=== PATIENT | female | born 1960 | race Caucasian/White ===

== ENCOUNTER 2017-02-04 13:33 | Emergency (ER) | payer MEDICARE, OTHER ==
--- NOTE | ~2017-02-04 | MR18 ---
[facility] A Service of [facility] RADIOLOGY TEXT RESULTS PATIENT: LUZ MARIA GUAN LOCATION: [facility] : [birth year] UNIT #: [id number] AGE: [address]: Yamila Montemayor MD SEX: F ORDER DR: [id number] [facility] [place] [address] [place], [place] [address] [id number] E MR#: [id number] Acc #: [id number] NAME: LUZ MARIA GUAN. : 1960 SEX: F STUDY DATE/TIME: 02/04/2017 22:30 UNIT: [facility] ROOM: STUDY DESCRIPTION: MR Brain Wo Contrast Attending Physician: Yamila Montemayor M.D. Ordering Physician: Jerel Goodman D.O. Primary Care Physician: Xavier Bailey M.D. MRI CENTER REPORT This report is preliminary unless electronic signature is present. EXAM MRI of the brain without contrast INDICATION Dizziness, loss of balance, slurred speech and ataxia starting 02/03/2017. The technologist noted that the patient was claustrophobic and could not hold still for the carotid artery study. TECHNIQUE Sagittal T1-weighted images and axial T1, T2, FLAIR, and diffusion images were obtained. FINDINGS The pituitary gland and foramen magnum region are normal in appearance. There is no abnormal diffusion. The ventricles and subarachnoid spaces are normal. There is no white matter abnormality identified. There are no extra-axial fluid collections. IMPRESSION Normal study. No evidence of recent ischemic change. Dictated by... Rodri Hernandes M.D. THIS IS AN ELECTRONICALLY VERIFIED REPORT Rodri Hernandes M.D. at 02/05/2017 1:21 PM JUAN/najma TD: 02/05/2017 09:43 JOB #: [id number] [facility] A Service of [facility] RADIOLOGY TEXT RESULTS PATIENT: LUZ MARIA GUAN LOCATION: [facility] : [birth year] UNIT #: [id number] AGE: [address]: Yamila Montemayor MD SEX: F ORDER DR: MRI CENTER REPORT Page 1 of 1 COPY
--- NOTE | ~2017-02-04 | CR72 ---
[facility] A Service of [facility] RADIOLOGY TEXT RESULTS PATIENT: LUZ MARIA GUAN LOCATION: [facility] : [birth year] UNIT #: [id number] AGE: [address]: Yamila Montemayor MD SEX: F ORDER DR: [id number] [facility] [address] [place], [place] [address] [id number] E MR#: [id number] Acc #: [id number] NAME: LUZ MARIA GUAN : 1960 SEX: F STUDY DATE/TIME: 02/04/2017 14:51 UNIT: [facility] ROOM: STUDY DESCRIPTION: CR Chest Single View Portable Attending Physician: Jerel Goodman D.O. Ordering Physician: Jerel Goodman D.O. Primary Care Physician: Xavier Bailey M.D. MEDICAL IMAGING REPORT This report is preliminary unless electronic signature is present EXAM Portable chest 02/04/2017 INDICATIONS Dizziness, encephalopathy, medication overdose, shortness of breath today. COMPARISON 03/11/2014 FINDINGS Decreased inspiratory volume with atelectasis in the lung bases. Heart size stable accounting for differences in technique. Visualized osseous structures are unremarkable. IMPRESSION No acute findings in the chest. Dictated by... Leonard Hairston M.D. THIS IS AN ELECTRONICALLY VERIFIED REPORT Leonard Hairston M.D. at 02/05/2017 7:38 AM SAYDA/demetrio TD: 02/04/2017 18:07 JOB #: [id number] MEDICAL IMAGING REPORT Page 1 of 1 COPY
--- NOTE | ~2017-02-04 | MR134 ---
[facility] A Service of [facility] & [facility] RADIOLOGY TEXT RESULTS PATIENT: LUZ MARIA GUAN LOCATION: [facility] : [birth year] UNIT #: [id number] AGE: [address]: Yamila Montemayor MD SEX: F ORDER DR: [id number] [facility] [address] [place], [place] [address] [id number] E MR#: [id number] Acc #: [id number] NAME: LUZ MARIA GUAN. : 1960 SEX: F STUDY DATE/TIME: 02/04/2017 22:30 UNIT: [facility] ROOM: STUDY DESCRIPTION: MR MRA Neck Wo Contrast Attending Physician: Yamila Montemayor M.D. Ordering Physician: Jerel Goodman D.O. Primary Care Physician: Xavier Bailey M.D. MRI CENTER REPORT This report is preliminary unless electronic signature is present. EXAM MRA of the neck HISTORY Dizziness, off-balance, slurred speech starting 02/03. FINDINGS The patient was claustrophobic and the study is non-diagnostic. The patient could not hold still and could not tolerate any additional imaging. The vertebral arteries are both patent. There is too much motion to evaluate for stenoses in the carotid systems. IMPRESSION The study is too degraded by motion to be of any significant diagnostic utility. Both vertebral arteries are patent but otherwise the study is nondiagnostic. Dictated by... Rodri Hernandes M.D. THIS IS AN ELECTRONICALLY VERIFIED REPORT Rodri Hernandes M.D. at 02/05/2017 1:21 PM Renetta TD: 02/05/2017 09:44 JOB #: [id number] MRI CENTER REPORT Page 1 of 1 COPY
--- NOTE | ~2017-02-04 | CR98 ---
[facility] A Service of [facility] & [facility] RADIOLOGY TEXT RESULTS PATIENT: LUZ MARIA GUAN LOCATION: [facility] : [birth year] UNIT #: [id number] AGE: [address]: Yamila Montemayor MD SEX: F ORDER DR: [id number] [facility] [address] [place], [place] [address] [id number] E MR#: [id number] Acc #: [id number] NAME: LUZ MARIA GUAN. : 1960 SEX: F STUDY DATE/TIME: 02/04/2017 17:35 UNIT: [facility] ROOM: STUDY DESCRIPTION: CR Eye FB Santino Attending Physician: Yamila Montemayor M.D. Ordering Physician: Jerel Goodman D.O. Primary Care Physician: Xavier Bailey M.D. MEDICAL IMAGING REPORT This report is preliminary unless electronic signature is present EXAM Foreign body orbital series, 02/04/2017 INDICATION MRI clearance. The patient reports a foreign body in her eyes years ago. TECHNIQUE 2 views of the orbits, no comparisons. FINDINGS No retained metallic appearing foreign body identified. Artifact from dental hardware. IMPRESSION No metallic retained opaque foreign body identified. Dictated by... Oskar Thomas M.D. THIS IS AN ELECTRONICALLY VERIFIED REPORT Oskar Thomas M.D. at 02/05/2017 2:30 PM Arik TD: 02/05/2017 03:25 JOB #: [id number] MEDICAL IMAGING REPORT Page 1 of 1 COPY
--- NOTE | ~2017-02-04 | EKG ---
PATIENT: CLEVELAND GUANY UNIT #: [id number] Ventricular Rate: 94 BPM Atrial Rate: 94 BPM P-R Interval: 132 ms QRS Duration: 66 ms Q-T Interval: 380 ms QTC Calculation(Bezet): 475 ms P Harrison: 60 degrees Calculated R Harrison: 38 degrees Calculated T Harrison: 49 degrees Diagnosis Line: Normal sinus rhythm Diagnosis Line: Normal ECG Diagnosis Line: No previous ECGs available Diagnosis Line: Confirmed by SUSU SEYMOUR MD ([id number]) on Diagnosis Line: 02/05/2017 9:09:04 PM INTERPRETING MD: CARRIE
--- NOTE | ~2017-02-04 | MR122 ---
[facility] A Service of [facility] RADIOLOGY TEXT RESULTS PATIENT: LUZ MARIA GUAN LOCATION: [facility] : [birth year] UNIT #: [id number] AGE: [address]: Yamila Montemayor MD SEX: F ORDER DR: [id number] [facility] [address] [place], [place] [address] [id number] E MR#: [id number] Acc #: [id number] NAME: LUZ MARIA GUAN. : 1960 SEX: F STUDY DATE/TIME: 02/04/2017 22:30 UNIT: [facility] ROOM: STUDY DESCRIPTION: MR MRA Head Wo Contrast Attending Physician: Yamila Montemayor M.D. Ordering Physician: Jerel Goodman D.O. Primary Care Physician: Xavier Bailey M.D. MRI CENTER REPORT This report is preliminary unless electronic signature is present. EXAM MRA of the brain INDICATION Dizziness, off balance, slurred speech starting 02/03/2017. TECHNIQUE 3D [id number] acquisition was used to generate angiographic images of the base of the brain. 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 The middle and anterior cerebral arteries are normal in appearance. There are posterior communicating arteries bilaterally. IMPRESSION 1. 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 2. The vessels of the brain are otherwise normal. Dictated by... Rodri Hernandes M.D. THIS IS AN ELECTRONICALLY VERIFIED REPORT Rodri Hernandes M.D. at 02/05/2017 1:21 PM JUAN/najma TD: 02/05/2017 09:46 JOB #: [id number] [facility] A Service of [facility] RADIOLOGY TEXT RESULTS PATIENT: LUZ MARIA GUAN LOCATION: [facility] : [birth year] UNIT #: [id number] AGE: [address]: Yamila Montemayor MD SEX: F ORDER DR: MRI CENTER REPORT Page 1 of 1 COPY
[~2017-02-04 13:33] MED LIST: AMANTADINE100 M1 PO; ASPIRIN EC81 M1 PO; CLOPIDOGREL75 MG PO; CLOZAPINE PO; DEPO-PROVER150 MG/ML INJ; DIVALPROEX SOD500 MG PO; INVEGA; NYSTATIN5 ML PO; PRAVASTATIN SOD80 MG PO; VIT E PO; [UNRECOGNIZED DRUG - OTHER] IJ
[2017-02-04] MEDS ORDERED: CELEXA20 MG PO (14:43)
[2017-02-04] MEDS ORDERED: VITAMIN D400 UNI2 PO (14:43)
[2017-02-04 15:47] LABS: BASOPHIL# 0.1 X10e3 (0-0.3); BASOPHIL% 1.1 % (0-2.5); EOSINOPHIL# 1.2 X10e3 (0-0.7); EOSINOPHIL% 9.7 % (0.0-7.0); HEMATOCRIT 44.4 % (35.0-45.0); HEMOGLOBIN 14.6 gm/dL (12.0-16.0); LYMPHOCYTE# 2.9 X10e3 (1.0-3.5); LYMPHOCYTE% 23.5 % (17.0-45.0); MEAN CELL VOLUME 90.4 FL (83-96); MEAN CORPUSCULAR HEMOGLOBIN 29.8 PG (28-34); MEAN PLATELET VOLUME 8.9 FL (6.5-11.5); MONOCYTE# 0.8 X10e3 (0-1.0); MONOCYTE% 6.6 % (3.0-12.0); NEUTROPHIL# 7.2 X10e3 (1.5-7.1); NEUTROPHIL% 59.1 % (40-75); PLATELET COUNT 229 X10e3 (140-420); RED BLOOD COUNT 4.91 X10e (3.90-5.30); RED CELL DISTRIBUTION WIDTH 14.9 % (11.0-15.5); WHITE BLOOD COUNT 12.1 X10e3 (4.0-10.5)
[2017-02-04 15:51] LABS: DIFF IND NO
[2017-02-04 16:04] LABS: INR 0.9; PARTIAL THROMBOPLASTIN TIME 28.5 SECONDS (23.5-31.3); PROTHROMBIN TIME (PATIENT) 9.9 SECONDS (9.6-11.5)
[2017-02-04 16:19] LABS: ALBUMIN SERUM 3.9 g/dL (3.5-5.0); ALKALINE PHOSPHATASE 142 U/L (32-92); ALT (SGPT) 15 U/L (10-40); AST (SGOT) 17 U/L (10-42); BILIRUBIN,TOTAL 0.5 mg/dL (0.2-2.0); BLOOD UREA NITROGEN 6 mg/dL (9-23); BUN/CREATININE RATIO 8.57; CALCIUM SERUM 9.4 mg/dL (8.4-10.2); CARBON DIOXIDE 31 mmol/L (22-31); CHLORIDE 90 mmol/L (100-111); CREATININE SERUM 0.7 mg/dL (0.6-1.4); GLOM FILT RATE Estimated 98.2 mL/min (>60); GLUCOSE FASTING 120 mg/dL (70-110); POTASSIUM 4.1 mmol/L (3.5-5.1); PROTEIN TOTAL SERUM 6.7 g/dL (6.0-8.3); SALICYLATE <4.0 mg/dL; SODIUM 131 mmol/L (135-145)
[2017-02-04 16:27] LABS: ACETAMINOPHEN <10 ug/mL; ALCOHOL BLOOD <5 mg/dL (0); BILIRUBIN, DIRECT <0.1 mg/dL (0.0-0.2); BILIRUBIN,INDIRECT 0.4 mg/dL (0.0-0.9)
[2017-02-04 18:23] LABS: POC - CKMB 1.9 ng/mL (0.0-7.9); POC - TROPONIN <0.05 ng/mL (<=0.05)
[2017-02-04 21:53] LABS: URINE SOURCE CLEAN CATCH
[2017-02-04 22:12] LABS: AMPHETAMINE NEG (NEG); BARBITURATES NEG (NEG); BENZODIAZEPINES NEG (NEG); COCAINE NEG (NEG); MARIJUANA NEG (NEG); OPIATES NEG (NEG); TRICYCLIC ANTIDEPRESSANTS NEG (NEG); U METHADONE NEG (NEG)
[2017-02-04 22:28] LABS: URINE APPEARANCE CLEAR; URINE BILIRUBIN NEG (NEG); URINE BLOOD NEG (NEG); URINE COLOR YELLOW; URINE GLUCOSE NEG (NEG); URINE KETONE NEG (NEG); URINE LEUKOCYTE ESTERASE NEG (NEG); URINE NITRATE NEG (NEG); URINE PH 7.5 (5-8); URINE PROTEIN NEG (NEG); URINE SPECIFIC GRAVITY 1.003 (1.003-1.035); URINE UROBILINOGEN 0.2 MG/DL (NEG)
[2017-02-04 22:29] LABS: CULTURE INDICATED? NO
== END 2017-02-05 01:05 | disposition home or self-care (01) ==
LOC: CED 13:33
PROVIDERS: Emergency Medicine
DX: E78.5 Hyperlipidemia, unspecified (principal); Z79.899 Other long term (current) drug therapy
CPT/HCPCS: 70030; 70544; 70547; 70551; 71010; 80048; 80076; 80164; 80307; 81003; 82140; 82553; 82947; 84484; 85025; 85610; 85730; 93005; 99285; G0480